=== PATIENT | female | born 1990 | race Caucasian/White ===

== ENCOUNTER → 2018-05-22 | Outpatient (CLI) | payer OTHER ==
[~2018-05-22] MED LIST: BENTYL20 MG PO; CIPROFLOXIN HC2.5 M1 OPHTHALMIC; IBUPROFEN 400400 M2 PO; PEPCID40 MG PO; PRILOSEC40 MG
== END ==
LOC: M.ULTRA 11:15
DX: N20.0 Calculus of kidney (principal); G89.29 Other chronic pain; R10.9 Unspecified abdominal pain

== ENCOUNTER 2018-08-06 12:46 | Inpatient (IN) | payer OTHER ==
[2018-08-06] VITALS (11 sets, daily range): BP systolic 71–126; BP diastolic 33–78
[~2018-08-06] VITALS: Ht 162.6 cm; Wt 49.9 kg
--- NOTE | ~2018-08-06 | OP ---
[facility] [address] [place] [address] OPERATIVE REPORT Name: CLARA MAURER Room: [address] IN M.R.#: [id number] Admission: 08/06/18 Attend Phys: Sophie Jarrell MD Discharge: Date of : 86 Report #: [id number] THIS REPORT FOR: //name// CC: Steve Jarrell DATE OF SERVICE: 08/06/2018 PREOPERATIVE DIAGNOSES: Right ureteral calculus with ureteral obstruction, urinary tract infection/sepsis. POSTOPERATIVE DIAGNOSES: Right ureteral calculus with ureteral obstruction, urinary tract infection/sepsis. PROCEDURE: Cystoscopy, right retrograde pyelogram, right ureteral stent placement. SURGEON: Axel Radford M.D. ANESTHESIA: General. SPECIMENS: None. DRAINS: 6 x 26 right ureteral stent. SPECIMENS: Urine from right renal pelvis for culture and sensitivity. COMPLICATIONS: None. INDICATIONS: This is a 27-year-old female who presented with right flank pain and CT findings of a right proximal ureteral calculus with hydronephrosis. She subsequently developed signs of UTI with sepsis including tachycardia into the 140s and systolic blood pressures in the 80s. Given her clinical deterioration despite IV antibiotics, I recommended that she undergo cystoscopy with right retrograde pyelogram and right ureteral stent placement emergently. Risks of procedure were explained including but not limited to worsening infection/sepsis, anesthesia, cardiopulmonary and vascular events, injuries to urethra, bladder, ureter, possible inability to bypass obstruction, necessitating nephrostomy placement, stent discomfort, possible development of strictures. We also discussed irritative symptoms with the stent and the need for timely followup regarding any stent left in place. She voiced clear understanding and wants to proceed. The patient's and family's questions were answered preoperatively. DESCRIPTION OF PROCEDURE: The patient was on cefepime preoperatively. After induction of general anesthesia, she was positioned, [place] [address] OPERATIVE REPORT Name: CLARA MAURER Room: [address] IN [facility].#: [id number] Admission: 08/06/18 Attend Phys: Sophie Jarrell MD Discharge: Date of : 86 Report #: [id number] lithotomy position. A timeout procedure was performed. Cystourethroscopy was performed. The urethra and bladder are normal on systematic examination. The ureteral orifices are orthotopic. No blood is seen from either. The right ureter was cannulated with a sensor wire, which was advanced to the right renal pelvis with fluoroscopic guidance. This immediately resulted in expressing some purulent fluid from the right ureter, which started to drain fairly briskly. I advanced a 5-[place]an ureteral catheter over the wire with fluoroscopic guidance into the region of the renal pelvis and aspirated about 5 mL of urine, which was sent for culture and sensitivity. Contrast was then given to confirm placement and assist with stent placement. This outlined a hydronephrotic renal pelvis and dilated the proximal ureter. Filling defect is noted in the proximal ureter. The Sensor wire was advanced back up the ureteral catheter and into the renal pelvis with fluoroscopic guidance. Catheter was removed leaving the wire in place. A 6 x 26 right ureteral stent was passed over the wire and into the renal pelvis. Good position was confirmed in the renal pelvis fluoroscopically and in the bladder visually. Brisk drainage of cloudy urine was noted from the stent. The bladder was left partially filled and the scope was removed. Lidocaine jelly was given per urethra. A 16-[place]an Kincaid catheter was then placed to assist with fluid monitoring for the short term. The patient was transferred to the Recovery Room postoperatively and plans per Internal Medicine are for transfer to intensive care given her clinical condition. There were no complications. Plan will be to defer definitive stone management until a full course of culture-directed antibiotics as had been explained to the patient and family preoperatively. By: [id number] Radford MD /nt
[2018-08-06 13:09] LABS: URINE BILIRUBIN NEGATIVE (Negative); URINE BLOOD 3+ (Negative); URINE CLARITY CLEAR; URINE COLOR YELLOW; URINE GLUCOSE-RANDOM NEGATIVE (Negative); URINE KETONES 2+ (Negative); URINE LEUKOCYTES-REFLEX 1+ (Negative); URINE NITRITE-REFLEX NEGATIVE (Negative); URINE PROTEIN NEGATIVE (Negative); URINE SPECIFIC GRAVITY 1.015 (1.005-1.030); URINE UROBILINOGEN 0.2 E.U./dl (0.2-1.0)
[2018-08-06] MEDS ORDERED: XANAX1 MG PO (13:11)
[2018-08-06 13:16] LABS: CASTS None Seen /LPF (None Seen); CRYSTALS None Seen /LPF (None Seen); MUCUS 0-3 Light strn/LPF (None Seen); SQUAMOUS 0-3 Few /LPF (0-3); URINE RBC 3-10 Few /HPF (0-2); URINE WBC-REFLEX 6-15 Few /HPF (0-5)
[2018-08-06 13:28] LABS: ABSOLUTE BASOPHILS 0.1 thou/uL (0.0-0.2); ABSOLUTE EOSINOPHILS 0.1 thou/uL (0.0-0.7); ABSOLUTE MONOCYTES 0.3 thou/uL (0.0-1.2); ABSOLUTE NEUTROPHILS 4.8 thou/uL (1.6-8.1); BASOPHILS 0.8 %; EOSINOPHILS 1.4 %; HEMATOCRIT 40.4 % (37.0-47.0); HEMOGLOBIN 13.9 gm/dL (12.0-15.0); LYMPHOCYTES 16.2 %; MCH 31.7 pg (26.0-34.0); MCHC 34.4 g/dL (28.0-37.0); MCV 92.1 fL (80.0-100.0); MONOCYTES 5.3 %; MPV 8.6 fl. (7.2-11.1); NUCLEATED RBCS 0 /100WBC; PLATELET COUNT* 193 thou/uL (150-400); POLYS 76.3 %; RBC 4.39 mil/uL (4.20-5.00); RDW-CV 12.4 % (10.5-14.5); WBC 6.3 thou/uL (4.0-11.0)
[2018-08-06 13:37] LABS: ALBUMIN 4.3 g/dL (3.4-5.0); CALCIUM 9.2 mg/dL (8.5-10.1); CREATININE 0.7 mg/dL (0.6-1.3); POTASSIUM 3.6 mmol/L (3.5-5.1); TOTAL BILIRUBIN 0.5 mg/dL (<0.1-1.0)
[2018-08-07] VITALS (91 sets, daily range): BP systolic 74–109; BP diastolic 39–75
[2018-08-07 01:11] LABS: HEMATOCRIT 29.4 % (37.0-47.0); MCH 32.3 pg (26.0-34.0); MCHC 34.9 g/dL (28.0-37.0); MCV 92.7 fL (80.0-100.0); RBC 3.18 mil/uL (4.20-5.00); RDW-CV 12.6 % (10.5-14.5); WBC 7.4 thou/uL (4.0-11.0)
[2018-08-07 01:13] LABS: HEMOGLOBIN 10.3 gm/dL (12.0-15.0)
[2018-08-07 01:15] LABS: CALCIUM 7.2 mg/dL (8.5-10.1); CREATININE 0.8 mg/dL (0.6-1.3); POTASSIUM 3.3 mmol/L (3.5-5.1)
--- NOTE | 2018-08-07 10:04 | EKG ---
[place] [address] ELECTROCARDIOGRAM REPORT Name: CLARA MAURER Room: [address] ADM IN M.R.#: [id number] Admission: 08/06/18 Attend Phys: Sophie Jarrell MD Discharge: Date of : 86 Report #: [id number] THIS REPORT FOR: //name// [facility] ED Test Date: 2018-08-06 Test Time: 18:49:36 Pat Name: CLARA MAURER Department: Room: [facility] Gender: F [employer]: MINOR : 1990 Requested By: Chelsy Sanchez Order Number: [id number] MD: Lyle Holden Measurements Intervals [place] Rate: 143 P: 85 ID: 125 QRS: 80 QRSD: 86 T: 20 QT: 307 QTc: 474 Interpretive Statements Sinus tachycardia Ventricular premature complex Aberrant complex RSR' in V1 or V2, right VCD or RVH Borderline T abnormalities, anterior leads Borderline prolonged QT interval No previous ECG available for comparison Electronically Signed On 08-07-2018 10:04:35 CDT by Lyle Holden [email or web address] <ELECTRONICALLY SIGNED> By: Lyle Holden MD, FACC 08/07/18 1004 1849 1849 Lyle Holden MD, FAC /EPI
[2018-08-07 14:45] LABS: MAGNESIUM 2.7 mg/dL (1.8-2.4)
[2018-08-07 14:46] LABS: POTASSIUM 4.8 mmol/L (3.5-5.1)
[2018-08-08] VITALS (46 sets, daily range): BP systolic 85–108; BP diastolic 41–73
[2018-08-08 05:39] LABS: HEMATOCRIT 30.9 % (37.0-47.0); HEMOGLOBIN 10.4 gm/dL (12.0-15.0); MCH 31.4 pg (26.0-34.0); MCHC 33.6 g/dL (28.0-37.0); MCV 93.4 fL (80.0-100.0); MPV 9.6 fl. (7.2-11.1); NUCLEATED RBCS 0 /100WBC; PLATELET COUNT* 73 thou/uL (150-400); RBC 3.31 mil/uL (4.20-5.00); RDW-CV 13.2 % (10.5-14.5); WBC 19.4 thou/uL (4.0-11.0)
[2018-08-08 05:45] LABS: CALCIUM 7.8 mg/dL (8.5-10.1); CREATININE 0.6 mg/dL (0.6-1.3); MAGNESIUM 2.3 mg/dL (1.8-2.4); POTASSIUM 4.1 mmol/L (3.5-5.1)
[2018-08-08 06:34] LABS: ABSOLUTE MONOCYTES 0.8 thou/uL (0.0-1.2); ABSOLUTE NEUTROPHILS 17.7 thou/uL (1.6-8.1); ANISOCYTOSIS 1+; PLATELET ESTIMATE DECREASED
[2018-08-08 06:35] LABS: POIKILOCYTOSIS 1+; TOXIC GRANULATION Occasional
[2018-08-09 03:53] LABS: ABSOLUTE EOSINOPHILS 0.2 thou/uL (0.0-0.7); ABSOLUTE LYMPHOCYTES 1.3 thou/uL (0.8-5.3); ABSOLUTE MONOCYTES 0.4 thou/uL (0.0-1.2); ABSOLUTE NEUTROPHILS 8.3 thou/uL (1.6-8.1); BASOPHILS 0.4 %; EOSINOPHILS 1.8 %; HEMATOCRIT 30.5 % (37.0-47.0); HEMOGLOBIN 10.5 gm/dL (12.0-15.0); LYMPHOCYTES 12.4 %; MCHC 34.6 g/dL (28.0-37.0); MCV 92.7 fL (80.0-100.0); MPV 9.5 fl. (7.2-11.1); NUCLEATED RBCS 0 /100WBC; PLATELET COUNT* 68 thou/uL (150-400); POLYS 81.4 %; RBC 3.29 mil/uL (4.20-5.00); WBC 10.3 thou/uL (4.0-11.0)
[2018-08-09 04:01] LABS: CALCIUM 7.9 mg/dL (8.5-10.1); CREATININE 0.6 mg/dL (0.6-1.3); POTASSIUM 3.9 mmol/L (3.5-5.1)
[2018-08-09 09:09] VITALS: BP 106/77
[2018-08-09] MEDS ORDERED: SENNA PLUS TAB1 EACH PO (09:37)
[2018-08-09] MEDS ORDERED: KEFLEX500 M1 PO (09:39)
[2018-08-09 10:02] VITALS: BP 106/77
== END 2018-08-09 11:20 | disposition home or self-care (01) | DRG 853 ==
LOC: M.ERS 12:46 → M.TBA-ER 14:23 → M.ICU 18:52 → M.TBA-ER 18:52 → M.ICU 21:52
PROVIDERS: Physician Assistant; Urology; ADMIT Family Medicine
PROC: BT1D1ZZ Fluoroscopy of Right Kidney, Ureter and Bladder using Low Osmolar Contrast (ICD-10-PCS; principal; 2018-08-06)
PROC: B244YZZ Ultrasonography of Right Heart using Other Contrast (ICD-10-PCS; principal; 2018-08-06)
PROC: 0T768DZ Dilation of Right Ureter with Intraluminal Device, Via Natural or Artificial Opening Endoscopic (ICD-10-PCS; principal; 2018-08-06)
PROC: 02H633Z Insertion of Infusion Device into Right Atrium, Percutaneous Approach (ICD-10-PCS; principal; 2018-08-06)
DX: A41.9 Sepsis, unspecified organism (principal); R65.21 Severe sepsis with septic shock; N13.6 Pyonephrosis; K21.9 Gastro-esophageal reflux disease without esophagitis; F17.210 Nicotine dependence, cigarettes, uncomplicated; I95.9 Hypotension, unspecified; E83.42 Hypomagnesemia; E87.6 Hypokalemia; E83.51 Hypocalcemia; D69.6 Thrombocytopenia, unspecified; B96.20 Unspecified Escherichia coli [E. coli] as the cause of diseases classified elsewhere; Z88.0 Allergy status to penicillin; Z79.899 Other long term (current) drug therapy